=== PATIENT | male | born 1960 | race Caucasian/White ===

== ENCOUNTER 2024-03-30 14:18 | Emergency (ER) | payer BC, OTHER ==
[2024-03-30 14:51] VITALS: BP 132/92; PULSE 74; RESP 18; TEMP 98.6; BMI 25.8
[2024-03-30] MEDS ORDERED: IBUPROFEN 600 MG TABLET (FP) PO ONE (15:16)
[2024-03-30] MEDS: IBUPROFEN 600 MG TABLET (FP) PO ONE (15:30)
== END 2024-03-30 15:45 | disposition home or self-care (01) ==
LOC: JER 14:18 → JERFT 14:18
DX: M25.531 Pain in right wrist (principal); M79.641 Pain in right hand; V43.52XA Car driver injured in collision with other type car in traffic accident, initial encounter; Y92.410 Unspecified street and highway as the place of occurrence of the external cause
CPT/HCPCS: 73110-TC-RT-FY; 73130-TC-RT-FY; 99283-25